=== PATIENT | female | born 1985 | race Caucasian/White ===

== ENCOUNTER 2018-11-10 19:28 | Emergency (ER) | payer OTHER ==
[~2018-11-10] VITALS: Ht 167.6 cm; Wt 116.1 kg
[~2018-11-10 19:28] MED LIST: ALBU90OI6 INH; AMOX500 PO; BUPRENORPHINE HC2 MG; CLEM1.34; CRUTCH3 USE; CRUTCH4 XX; CYCL10 PO; Cleocin HCl150 MG PO; ESTR2 PO; IBUP800 PO; IPRA.06NI; LABE100 PO; LISI20 PO; MULVITMINE PO; NAPR500; NAPR500 PO; OXYACE5T PO; OXYC10ER PO; SUMA25 PO; VENLAFAXINE HCL75 MG PO; Verotin-Gr Cap1 EACH PO
[2018-11-10] MEDS ORDERED: METF500C PO (20:12)
== END 2018-11-10 20:35 | disposition home or self-care (01) ==
LOC: ER 19:28
DX: S93.402A Sprain of unspecified ligament of left ankle, initial encounter (principal); W01.0XXA Fall on same level from slipping, tripping and stumbling without subsequent striking against object, initial encounter; Z88.2 Allergy status to sulfonamides; Z88.5 Allergy status to narcotic agent; Z88.8 Allergy status to other drugs, medicaments and biological substances; Z79.899 Other long term (current) drug therapy; I10 Essential (primary) hypertension; F17.210 Nicotine dependence, cigarettes, uncomplicated
CPT/HCPCS: 29515; 73610; 73630; 96372-59; 99283-25; J1885

== ENCOUNTER 2019-11-15 10:41 | Emergency (ER) | payer OTHER ==
[~2019-11-15] VITALS: Ht 170.2 cm; Wt 102.5 kg
[~2019-11-15 10:41] MED LIST changes: +METF500C PO
[2019-11-15] MEDS ORDERED: PROP60 PO (10:57)
[2019-11-15] MEDS ORDERED: Amoxicillin875 MG PO (12:19)
[2019-11-15] MEDS ORDERED: Ciprodex Otic7.5 ML LEFTEAR (12:19)
== END 2019-11-15 12:30 | disposition home or self-care (01) ==
LOC: ER 10:41
DX: H60.92 Unspecified otitis externa, left ear (principal); H66.92 Otitis media, unspecified, left ear; Z88.5 Allergy status to narcotic agent; Z88.2 Allergy status to sulfonamides; Z88.8 Allergy status to other drugs, medicaments and biological substances; Z79.899 Other long term (current) drug therapy; Z91.048 Other nonmedicinal substance allergy status; Z79.84 Long term (current) use of oral hypoglycemic drugs; I10 Essential (primary) hypertension; E11.9 Type 2 diabetes mellitus without complications; F17.210 Nicotine dependence, cigarettes, uncomplicated
CPT/HCPCS: 99282

== ENCOUNTER → 2020-05-17 | Outpatient (CLI) | payer OTHER ==
[~2020-05-17] MED LIST changes: +Amoxicillin875 MG PO; +Ciprodex Otic7.5 ML LEFTEAR; +PROP60 PO
== END ==
LOC: LAB SHORT 15:30 → LAB 15:30
DX: L72.0 Epidermal cyst (principal); L40.4 Guttate psoriasis
CPT/HCPCS: 87070; 87077; 87147; 87186; 87205

== ENCOUNTER 2021-08-25 21:34 | Emergency (ER) | payer OTHER, BC ==
[~2021-08-25] VITALS: Ht 170.2 cm; Wt 88.5 kg
[2021-08-25] MEDS ORDERED: CYCL10 PO (23:54)
== END 2021-08-26 00:17 | disposition home or self-care (01) ==
LOC: ER 21:34
DX: T14.8XXA Other injury of unspecified body region, initial encounter (principal); V43.92XA Unspecified car occupant injured in collision with other type car in traffic accident, initial encounter; M54.2 Cervicalgia; M54.50 Low back pain, unspecified; M54.6 Pain in thoracic spine; I10 Essential (primary) hypertension; E11.9 Type 2 diabetes mellitus without complications; F17.210 Nicotine dependence, cigarettes, uncomplicated
CPT/HCPCS: 72125; 73610; 96372; 99284-25; A9270; J1885

== ENCOUNTER 2024-12-27 21:33 | Emergency (ER) | payer BC, OTHER ==
[~2024-12-27] VITALS: Ht 170.2 cm; Wt 88.5 kg
[2024-12-27 21:40] VITALS: BP 147/100
[2024-12-27] MEDS ORDERED: TERB250 PO (22:45)
[2024-12-27] MEDS ORDERED: TRESIBA FL100 UNIT/2 SQ (22:45)
[2024-12-27] MEDS ORDERED: ATOR40TA PO (22:45)
[2024-12-27] MEDS ORDERED: SAXAGLIPTIN HCL5 MG PO (22:45)
[2024-12-27] MEDS ORDERED: LINZESS72 MCG PO (22:46)
[2024-12-27] MEDS ORDERED: GABA100 PO (22:46)
[2024-12-27] MEDS ORDERED: FARXIGA10 MG PO (22:46)
[2024-12-27] MEDS ORDERED: OZEMPIC0.25 MG/02 SQ (22:47)
[2024-12-27] MEDS ORDERED: INVOKANA100 MG PO (22:47)
[2024-12-27] MEDS ORDERED: TRAZ50 PO (22:47)
[2024-12-27] MEDS ORDERED: Amoxicillin875 MG PO (22:50)
[2024-12-27] MEDS ORDERED: Dexamethasone Sod Phos 10 MG/ML 1ML VIAL PO ONE (22:55)
[2024-12-27] MEDS ORDERED: Amoxicillin 875 MG Tab PO ONE (22:55)
== END 2024-12-27 23:15 | disposition home or self-care (01) ==
LOC: ER 21:33
DX: J02.0 Streptococcal pharyngitis (principal); I10 Essential (primary) hypertension; E11.9 Type 2 diabetes mellitus without complications; F17.210 Nicotine dependence, cigarettes, uncomplicated; Z88.2 Allergy status to sulfonamides; Z88.5 Allergy status to narcotic agent; Z88.8 Allergy status to other drugs, medicaments and biological substances; Z79.899 Other long term (current) drug therapy; Z79.2 Long term (current) use of antibiotics
CPT/HCPCS: 87430; 99282; A9270; J1100